=== PATIENT | male | born 1945 | race Caucasian/White ===

== ENCOUNTER 2023-09-19 15:17 | Emergency (ER) | payer MEDICARE, OTHER ==
[~2023-09-19] VITALS: Ht 177.8 cm; Wt 97.5 kg
[2023-09-19 15:26] VITALS: BP 174/93
[2023-09-19] MEDS ORDERED: XARELTO1 EAC1 PO (16:48)
== END 2023-09-19 16:54 | disposition home or self-care (01) ==
LOC: ER 15:17
DX: I82.411 Acute embolism and thrombosis of right femoral vein (principal); I82.431 Acute embolism and thrombosis of right popliteal vein; I82.461 Acute embolism and thrombosis of right calf muscular vein; I82.451 Acute embolism and thrombosis of right peroneal vein; I82.441 Acute embolism and thrombosis of right tibial vein; Z88.0 Allergy status to penicillin; Z88.1 Allergy status to other antibiotic agents; Z79.82 Long term (current) use of aspirin
CPT/HCPCS: 93971; 99283-25; A9270